=== PATIENT | male | born 1990 | race Caucasian/White ===

== ENCOUNTER 2016-08-23 11:02 | Emergency (ER) | payer OTHER ==
[~2016-08-23] VITALS: Ht 172.7 cm; Wt 83.4 kg
[2016-08-23 11:08] VITALS: TEMP 36.7; Ht 172.7 cm; Wt 83.4 kg
[2016-08-23] MEDS ORDERED: CHOL1000 PO (12:13)
[2016-08-23 12:19] LABS: BASO % 0.3 %; BASO ABS # 0.02 K/uL (0-0.2); COMPLETE YES; EOS % 1.7 %; HEMATOCRIT 42.5 % (42-52); IG% 0.5 %; LYMPH % 26.8 %; MEAN CELL VOLUME 83.2 fL (80-100); MEAN CORPUSCULAR HEMOGLOBIN 29.7 pg (25-34); MEAN CORPUSCULAR HGB CONC 35.8 g/dl (32-36); MONO % 5.8 %; NEUT % 64.9 %; PLATELET COUNT 231 K/uL (130-400); RED BLOOD COUNT 5.11 M/uL (4.7-6.1); WHITE BLOOD COUNT 7.45 K/uL (4.8-10.8)
[2016-08-23 12:34] LABS: PROTHROMBIN TIME (PATIENT) 10.8 SECONDS (9.0-12.0)
[2016-08-23 12:34] LABS: BENZODIAZEPINE, URINE NEG (NEG); COCAINE,URINE NEG (NEG); PHENCYCLIDINE, URINE NEG (NEG)
[2016-08-23 12:41] LABS: CALCIUM 8.9 mg/dl (8.5-10.1); CREATININE 0.81 mg/dl (0.60-1.40); POTASSIUM 3.8 mmol/L (3.5-5.1)
--- NOTE | 2016-08-23 15:02 | DIAGNOSTIC IMAGING REPORT ---
MRI OF THE BRAIN WITHOUT AND WITH IV CONTRAST CLINICAL HISTORY: aphasia eval for stroke mental status change COMPARISON STUDY: No previous studies for comparison. TECHNIQUE: Utilizing a 1.5 Karly magnet and dedicated coil, multiplanar, multiecho imaging of the brain was performed pre and postcontrast administration. IV administration of 8.5 mL of Gadavist contrast was uneventful. FINDINGS: Unremarkable signal characteristics of the diffusion-weighted images. No evidence for an acute ischemic event. Ventricular system is midline. Sella impression region are unremarkable. Structures the internal artery canals are unremarkable. IMPRESSION: Normal study. Electronically signed by: Saeid Martinez M.D. 08/23/2016 3:00 PM Dictated Date/Time: 08/23/2016 2:53 PM
--- NOTE | 2016-08-23 15:05 | DIAGNOSTIC IMAGING REPORT ---
Brain MRA HISTORY: Mental status change eval for stroke TECHNIQUE: 3-D [id number] MRA of the brain was performed without contrast. COMPARISON STUDY: None. FINDINGS: Visualized intracranial internal carotid arteries, distal vertebral arteries, and basilar artery are widely patent. There is no significant stenosis, occlusion, or aneurysm seen within the bilateral ACAs, MCAs, or digital forensics examiner. IMPRESSION: No significant stenosis, occlusion, or aneurysm within the [place]. Electronically signed by: Saeid Martinez M.D. 08/23/2016 3:03 PM Dictated Date/Time: 08/23/2016 3:00 PM
--- NOTE | 2016-08-23 15:11 | DIAGNOSTIC IMAGING REPORT ---
MR ANGIOGRAM OF THE NECK COMBO CLINICAL HISTORY: Aphasia. COMPARISON STUDY: No priors.. TECHNIQUE: Axial 2-D [id number] MR angiography of the neck is performed. Subsequently, following the IV administration of 8 cc of Gadavist coronal MR angiogram of the neck was performed to corroborate the findings. 3-D reformats are created and assessed. All measurements were calculated based on NASCET criteria. FINDINGS: Visualized portions of the thoracic aorta are normal in caliber. The aortic arch demonstrates 4-vessel variant anatomy. The left vertebral artery arises from the arch. The subclavian arteries are widely patent bilaterally. The right common carotid artery is widely patent, as are the right internal and external carotid arteries. The left common carotid artery is widely patent, as are the left internal and external carotid arteries. The vertebral arteries are widely patent noting right-sided dominance. The visualized intracranial vessels are normal as imaged. IMPRESSION: Unremarkable MR angiogram of the neck. Electronically signed by: Brenton Decker M.D. 08/23/2016 3:08 PM Dictated Date/Time: 08/23/2016 3:06 PM
[2016-08-23 15:56] VITALS: BP 128/101; PULSE 92; O2SAT 94
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
[2017-01-25] MEDS ORDERED: IBUP-1050 PO (08:59)
[2017-01-25] MEDS ORDERED: IMD/2 PO (09:00)
[2017-01-31] MEDS ORDERED: CLC100 PO (14:59)
[2017-01-31] MEDS ORDERED: ACET-1047 PO (14:59)
[2017-01-31] MEDS ORDERED: PRLSR20 PO (14:59)
[2017-01-31] MEDS ORDERED: HYDR-3419 PO (14:59)
[2017-01-31] MEDS ORDERED: IBUP-1050 PO (14:59)
== END 2016-08-23 15:56 | disposition home or self-care (01) ==
LOC: C.EDB 11:04 → C.EDC 15:56
DX: R47.9 Unspecified speech disturbances (principal); R51 Headache; F41.9 Anxiety disorder, unspecified; I10 Essential (primary) hypertension; F17.200 Nicotine dependence, unspecified, uncomplicated

== ENCOUNTER 2016-12-19 10:09 | Emergency (ER) | payer OTHER ==
[~2016-12-19] VITALS: Ht 172.7 cm; Wt 82.2 kg
[~2016-12-19 10:09] MED LIST: CHOL1000 PO
[2016-12-19 10:10] VITALS: TEMP 37.3; Ht 172.7 cm; Wt 82.2 kg
[2016-12-19] MEDS ORDERED: SODIUM CHLORIDE 0.9% 1000ML 1,000 ML IV STA (10:45)
[2016-12-19] MEDS ORDERED: CLON1TAB3 PO (10:51)
[2016-12-19] MEDS ORDERED: ESCI10TA17 PO (10:51)
[2016-12-19 10:56] LABS: BASO % 0.2 %; BASO ABS # 0.02 K/uL (0-0.2); COMPLETE YES; EOS % 0.7 %; HEMATOCRIT 49.5 % (42-52); IG% 0.5 %; LYMPH % 12.7 %; LYMPH ABS # 1.09 K/uL (1.2-3.4); MEAN CELL VOLUME 88.2 fL (80-100); MEAN CORPUSCULAR HEMOGLOBIN 31.6 pg (25-34); MEAN CORPUSCULAR HGB CONC 35.8 g/dl (32-36); MEAN PLATELET VOLUME 9.7 fL (7.4-10.4); NEUT % 77.9 %; PLATELET COUNT 218 K/uL (130-400); RED BLOOD COUNT 5.61 M/uL (4.7-6.1); WHITE BLOOD COUNT 8.55 K/uL (4.8-10.8)
--- NOTE | 2016-12-19 11:02 | EMERGENCY ROOM VISIT NOTE ---
History First contact with patient: 10:16 Chief Complaint: CHEST PAIN Stated Complaint: LEFT CHEST PAIN/DISCOMFORT Nursing Triage Summary: Relates left sided chest pain and congestion. PMH: pneumonia History of Present Illness The patient is a 26 year old male who presents to the Emergency Room with complaints of chest pain. The patient has had left-sided chest pain since last night around 7 PM. Patient has had constant chest pain. He states that he had several episodes over the last week that lasted only a short time and resolved. Because this has persisted, he presents to the emergency department. He reports pain with deep inspiration. He reports shortness of breath with exertion. He rates his discomfort an 8/10. The patient states that the pain is worse with movement and palpation. He denies any fevers, chills, earache, sore throat, cough. He denies any leg pain or leg swelling. He denies any personal history of DVT or PE. He states that his grandparents had blood clots. The patient initially denied any occupational exposures or chemical exposures. 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 He states he does not wear a respirator. He has been exposed to Asbestos and possibly black mold. Initially, he denied any drug use. When I asked more detailed information, he does admit to having a history of IV drug use. He states that he never shared any needles. Review of Systems A 10 system review of systems was completed with positives and pertinent negatives listed in the HPI. Past Medical/Surgical History Medical Problems: (1) Anxiety (2) High blood pressure Social History Smoking Status: Current Every Day Smoker Alcohol Use: occasionally Marital Status: in relationship Current/Historical Medications Scheduled Albuterol Hfa (Ventolin Hfa), 2 PUFFS PO QID Cholecalciferol (Vitamin D3), 1 TAB PO DAILY Escitalopram (Lexapro), 10 MG PO DAILY Levofloxacin (Levaquin), 750 MG PO DAILY Scheduled PRN Clonazepam (Klonopin), 1 MG PO DAILY PRN for Anxiety Physical Exam Vital Signs Date Time Temp Pulse Resp B/P (MAP) Pulse Ox O2 Delivery O2 Flow Rate FiO2 12/19/16 14:56 82 16 130/86 94 Room Air 12/19/16 12:52 93 20 127/87 99 Nebulizer 6.0 12/19/16 11:33 96 Nasal Cannula 2.0 12/19/16 11:25 88 16 127/87 88 Room Air 12/19/16 10:56 91 12/19/16 10:43 Room Air 12/19/16 10:10 37.3 100 18 147/86 95 Room Air Physical Exam VITALS: Vitals are noted on the nurse's note and reviewed by myself. Vital signs stable. The patient is afebrile. His heart rate is 100 bpm. His oxygen saturation is 95% on room air. GENERAL: This is a 26-year-old male, in no acute distress, nondiaphoretic, well- developed well-nourished. SKIN: The skin was without rashes, erythema, edema, or bruising. There is no tenting of the skin. Capillary reflex less than 2 seconds. HEAD: Normocephalic atraumatic. EARS: External ears are normal in appearance. EYES: Pupils equal round and reactive to light and accommodation. Conjunctivae without injection, sclerae without icterus. Extraocular movements intact. NOSE: Patent, turbinates without inflammation or discharge. MOUTH: Mucous membranes moist. Tonsils are not enlarged. Pharynx without erythema or exudate. Uvula midline. Airway patent. Tongue does not deviate. NECK: Supple without nuchal rigidity. No lymphadenopathy. No thyromegaly. Cervical spine is nontender. No JVD. HEART: Regular rate and rhythm without murmurs gallops or rubs. LUNGS: Clear to auscultation bilaterally without wheezes, rales or rhonchi. No retractions or accessory muscle use. There is tenderness to palpation of the left anterior and lateral chest wall. ABDOMEN: Positive bowel sounds x 4. Soft, nontender, without masses or organomegaly. Triana sign negative. MUSCULOSKELETAL: No muscle atrophy, erythema, or edema noted. Full range of motion without joint tenderness in all extremities. No tenderness to palpation. Normal gait. Strength 5/5 throughout. NEURO: Patient was alert and oriented to person place and time. No focal neurological deficits. Medical Decision & Procedures ER Provider Diagnostic Interpretation: [~ rep ct add3]] CHEST ONE VIEW PORTABLE CLINICAL HISTORY: chest pain, dyspnea dyspnea COMPARISON STUDY: No previous studies for comparison. FINDINGS: Diffuse interstitial prominence throughout both hemithoraces. No evidence for cardiac enlargement. No consolidative infiltrates. Diaphragms smooth. IMPRESSION: Diffuse bilateral interstitial change throughout both hemithoraces. This most likely is inflammatory. No consolidative infiltrates. (CHEST FOR PE) ANGIO WITH CT DOSE: 375.55 mGy.cm HISTORY: Chest pain dyspnea TECHNIQUE: Multiaxial CT images of the chest were performed following the intravenous administration of contrast to evaluate the pulmonary arteries. Maximal intensity projection images were also obtained. A dose lowering technique was utilized adhering to the principles of ALARA. COMPARISON STUDY: None. FINDINGS: The thoracic aorta is normal in course and caliber. Pulmonary vasculature enhances uniformly. There are no significant filling defects. There are diffuse interstitial changes throughout both hemithoraces. An underlying reticular nodular component appears to be present. There are no consolidative changes. There is moderate peribronchial thickening. There are findings of mediastinal as well as hilar adenopathy. Mediastinal nodes measure to 1.5 cm. Hilar nodes measure to 2.0 cm. There is moderate subcarinal adenopathy. Limited evaluation of the upper abdomen shows moderate splenomegaly with a maximum linear dimension of 12.5 cm. IMPRESSION: 1. Study is negative for pulmonary embolus. 2. Nonspecific interstitial infiltrative change throughout both hemithoraces. 3. Underlying reticular nodular component also nonspecific. 4. Moderate peribronchial thickening with moderate hilar and mediastinal adenopathy. 5. Differential considerations must include a nonspecific atypical pneumonitis, hypersensitivity pneumonitis, versus chronic fibrotic and/or interstitial change. 6. Follow-up to resolution is required. 7. Moderate splenomegaly. Laboratory Results 12/19/16 10:22 Red Blood Count 5.61, Mean Corpuscular Volume 88.2, Mean Corpuscular Hemoglobin 31.6, Mean Corpuscular Hemoglobin Concent 35.8, Mean Platelet Volume 9.7, Neutrophils (%) (Auto) 77.9, Lymphocytes (%) (Auto) 12.7, Monocytes (%) (Auto) 8.0, Eosinophils (%) (Auto) 0.7, Basophils (%) (Auto) 0.2, Neutrophils # (Auto) 6.66, Lymphocytes # (Auto) 1.09, Monocytes # (Auto) 0.68, Eosinophils # (Auto) 0.06, Basophils # (Auto) 0.02 12/19/16 10:22 Test 12/19/16 10:22 12/19/16 10:50 White Blood Count 8.55 K/uL (4.8-10.8) Red Blood Count 5.61 M/uL (4.7-6.1) Hemoglobin 17.7 g/dL (14.0-18.0) Hematocrit 49.5 % (42-52) Mean Corpuscular Volume 88.2 fL (80-100) Mean Corpuscular Hemoglobin 31.6 pg (25-34) Mean Corpuscular Hemoglobin Concent 35.8 g/dl (32-36) Platelet Count 218 K/uL (130-400) Mean Platelet Volume 9.7 fL (7.4-10.4) Neutrophils (%) (Auto) 77.9 % Lymphocytes (%) (Auto) 12.7 % Monocytes (%) (Auto) 8.0 % Eosinophils (%) (Auto) 0.7 % Basophils (%) (Auto) 0.2 % Neutrophils # (Auto) 6.66 K/uL (1.4-6.5) Lymphocytes # (Auto) 1.09 K/uL (1.2-3.4) Monocytes # (Auto) 0.68 K/uL (0.11-0.59) Eosinophils # (Auto) 0.06 K/uL (0-0.5) Basophils # (Auto) 0.02 K/uL (0-0.2) RDW Standard Deviation 41.0 fL (36.4-46.3) RDW Coefficient of Variation 12.7 % (11.5-14.5) Immature Granulocyte % (Auto) 0.5 % Immature Granulocyte # (Auto) 0.04 K/uL (0.00-0.02) Erythrocyte Sedimentation Rate 15 mm/hr (0-14) Prothrombin Time 10.7 SECONDS (9.0-12.0) Prothromb Time International Ratio 1.0 (0.9-1.1) Activated Partial Thromboplast Time 28.3 SECONDS (21.0-31.0) Partial Thromboplastin Ratio 1.1 Anion Gap 3.0 mmol/L (3-11) Est Creatinine Clear Calc Drug Dose 117.3 ml/min Estimated GFR () 121.1 Estimated GFR (Non- 104.5 BUN/Creatinine Ratio 11.9 (10-20) Calcium Level 9.2 mg/dl (8.5-10.1) Total Bilirubin 0.7 mg/dl (0.2-1) Aspartate Amino Transf (AST/SGOT) 25 U/L (15-37) Alanine Aminotransferase (ALT/SGPT) 41 U/L (12-78) Alkaline Phosphatase 117 U/L (45-117) C-Reactive Protein 1.85 mg/dl (0-0.29) Total Protein 8.4 gm/dl (6.4-8.2) Albumin 3.9 gm/dl (3.4-5.0) Globulin 4.5 gm/dl (2.5-4.0) Albumin/Globulin Ratio 0.9 (0.9-2) Lipase 70 U/L (73-393) Bedside D-Dimer 296 ng/mlFEU (0-450) Bedside Troponin I < 0.030 ng/ml (0-0.045) Medications Administered Medications (Trade) Dose Ordered Sig/Leslee Route Start Time Stop Time Status Last Admin Dose Admin Sodium Chloride 1,000 ml @ 999 mls/hr Q1H1M STAT IV 12/19/16 10:45 12/19/16 11:45 DC 12/19/16 10:45 999 MLS/HR Levofloxacin (Levaquin / D5W) 750 mg NOW STAT IV 12/19/16 11:58 12/19/16 11:59 DC 12/19/16 13:15 750 MG Ceftriaxone Sodium (Rocephin Inj) 1 gm NOW STAT IV 12/19/16 11:58 12/19/16 11:59 DC 12/19/16 12:48 1 GM Albuterol/ Ipratropium (Duoneb) 3 ml NOW STAT INH 12/19/16 12:10 12/19/16 12:11 DC 12/19/16 12:48 3 ML Trimethoprim/ Sulfamethoxazole (Septra Ds 800/ 160MG Tab) 1 tab NOW STAT PO 12/19/16 15:08 12/19/16 15:09 DC 12/19/16 15:08 1 TAB Procedure The patient was monitored on a classroom monitor. He maintained a normal sinus rhythm without ectopy. The patient did have an episode of hypoxia while on room air. His oxygen saturation dropped to 88%. He was placed on 2 L of oxygen via nasal cannula. His oxygen saturation improved to 96-98%. ECG Indication: chest pain Rate (beats per minute): 96 Rhythm: normal sinus Findings: no acute ischemic change Comparison ECG Date: no prior available ED Course The patient was seen and examined. Previous visits were reviewed. The patient does not have a fever or leukocytosis. He does not have any significant electrolyte abnormalities. Sedimentation rate is slightly elevated at 15. C- reactive protein is not elevated. Troponin was not elevated. D-dimer is not elevated. INR is 1.0. Chest x-ray was obtained as above and reveals diffuse interstitial prominence Because of this and the patient's hypoxia, chest pain and dyspnea, CTA of the chest was obtained. It is as above. The patient has lymphadenopathy. He has diffuse interstitial prominence. He has splenomegaly. The patient was given a nebulizer and 750 mg IV Levaquin. The patient presents the emergency department with dyspnea, chest pain and hypoxia. He has abnormal findings on imaging. He does have diffuse interstitial prominence. The patient's oxygen saturation dropped to 88% on room air while in the emergency department. The patient may have a pneumonitis. The patient was advised that admission to the hospital would be warranted for further evaluation and management. The patient stated he could not stay in the hospital. The patient stated he had to find childcare. He stated there were other things he had to take care of at home. I counseled the patient stating that he could develop worsening respiratory distress. He could develop respiratory arrest. He could . He acknowledges understanding. I discussed the case with Dr. Lamb who also evaluated the patient. He was not able to convince the patient to agree to stay in the hospital either. He did speak with pulmonology who recommended additional laboratory studies which were ordered. I again evaluated the patient. Case management spoke with him. He still does not want to stay in the hospital. He acknowledges that this could result in if his breathing worsens. He signed out AGAINST MEDICAL ADVICE. An appointment was made for him with pulmonology tomorrow at 1 PM. Initially, the patient stated that he does not use drugs but when I questioned further he does admit to a history of IV drug abuse. He states that he never shared needles. However, I did recommend obtaining an HIV test. I gathered the HIV test consents but the patient refuses. He states he does not want to be tested for HIV and states he would rather just follow-up as an outpatient and he wants to go home. At this time, the patient was signed out AGAINST MEDICAL ADVICE. He was welcomed to return immediately if he changes his mind. He was given one Bactrim prior to arrival for the potential of PCP pneumonia until he follows up with pulmonology. He was also given a prescription for Levaquin. He was given a prescription for albuterol. Medical Decision DIFFERENTIAL DIAGNOSIS: Aortic dissection, myocarditis, pericarditis, cervical disc disease, costochondritis, herpes zoster, rib fracture, pleuritis, pneumonia , pulmonary embolus, tension pneumothorax, anxiety disorder, somatoform disorder , choledocholithiasis, status, esophagitis, esophageal spasm, esophageal reflux , esophageal rupture, pancreatitis, peptic ulcer disease, cardiac ischemia, ST elevation NE, acute coronary syndrome, arrhythmia, coronary artery vasospasm. vavular heart disease, coronary artery disease, among others. Medication Reconcilliation Current Medication List: was personally reviewed by me Blood Pressure Screening Patient's blood pressure: Elevated blood pressure Blood pressure disposition: Elevated BP felt to be situational Impression Primary Impression: Lower respiratory infection (e.g., bronchitis, pneumonia, pneumonitis, pulmonitis) Departure Information Dispostion Against Medical Advice Condition GOOD Prescriptions Albuterol Hfa (VENTOLIN HFA) 200 Puffs/97098 Mcg Aers 2 PUFFS PO QID, #1 INHALER Prov: Mary Farr PA-C 12/19/16 Levofloxacin (Levaquin) 750 Mg Tab 750 MG PO DAILY for 7 Days, #7 TAB Prov: Mary Farr PA-C 12/19/16 Referrals Doron Bedolla PA-C (PCP) Bella Hadley PA-C Patient Instructions [facility] Additional Instructions Levaquin as prescribed, until finished Use the albuterol inhaler as needed for trouble breathing Prednisone as prescribed, until finished Follow-up with pulmonology tomorrow as scheduled Return with any worsening symptoms
[2016-12-19 11:06] LABS: BUN/CREATININE RATIO 11.9 (10-20); CALCIUM 9.2 mg/dl (8.5-10.1); CREATININE 0.98 mg/dl (0.60-1.40)
[2016-12-19 11:07] LABS: PARTIAL THROMBOPLASTIN RATIO 1.1; PROTHROMBIN TIME (PATIENT) 10.7 SECONDS (9.0-12.0)
[2016-12-19 11:08] LABS: ALB/GLOB RATIO 0.9 (0.9-2)
[2016-12-19 11:09] LABS: POINT OF CARE TROPONIN I < 0.030 ng/ml (0-0.045)
--- NOTE | 2016-12-19 11:23 | DIAGNOSTIC IMAGING REPORT ---
CHEST ONE VIEW PORTABLE CLINICAL HISTORY: chest pain, dyspnea dyspnea COMPARISON STUDY: No previous studies for comparison. FINDINGS: Diffuse interstitial prominence throughout both hemithoraces. No evidence for cardiac enlargement. No consolidative infiltrates. Diaphragms smooth. IMPRESSION: Diffuse bilateral interstitial change throughout both hemithoraces. This most likely is inflammatory. No consolidative infiltrates. The above report was generated using voice recognition software. It may contain grammatical, syntax or spelling errors. Electronically signed by: Saeid Martinez M.D. 12/19/2016 11:21 AM Dictated Date/Time: 12/19/2016 11:21 AM
[2016-12-19 11:33] VITALS: O2SAT 96
[2016-12-19] MEDS ORDERED: CEFTRIAXONE SOD INJ 1 GM ADDVIAL IV STA (11:58)
[2016-12-19] MEDS ORDERED: LEVAQUIN 750MG / 150ML D5W IV STA (11:58)
[2016-12-19] MEDS ORDERED: ALBUT/IPRATROP 3MG/0.5MG NEB 3 ML VIAL INH STA (12:10)
[2016-12-19] MEDS ORDERED: OPTIRAY 320 IV PRN (12:15)
--- NOTE | 2016-12-19 12:52 | DIAGNOSTIC IMAGING REPORT ---
(CHEST FOR PE) ANGIO WITH CT DOSE: 375.55 mGy.cm HISTORY: Chest pain dyspnea TECHNIQUE: Multiaxial CT images of the chest were performed following the intravenous administration of contrast to evaluate the pulmonary arteries. Maximal intensity projection images were also obtained. A dose lowering technique was utilized adhering to the principles of ALARA. COMPARISON STUDY: None. FINDINGS: The thoracic aorta is normal in course and caliber. Pulmonary vasculature enhances uniformly. There are no significant filling defects. There are diffuse interstitial changes throughout both hemithoraces. An underlying reticular nodular component appears to be present. There are no consolidative changes. There is moderate peribronchial thickening. There are findings of mediastinal as well as hilar adenopathy. Mediastinal nodes measure to 1.5 cm. Hilar nodes measure to 2.0 cm. There is moderate subcarinal adenopathy. Limited evaluation of the upper abdomen shows moderate splenomegaly with a maximum linear dimension of 12.5 cm. IMPRESSION: 1. Study is negative for pulmonary embolus. 2. Nonspecific interstitial infiltrative change throughout both hemithoraces. 3. Underlying reticular nodular component also nonspecific. 4. Moderate peribronchial thickening with moderate hilar and mediastinal adenopathy. 5. Differential considerations must include a nonspecific atypical pneumonitis, hypersensitivity pneumonitis, versus chronic fibrotic and/or interstitial change. 6. Follow-up to resolution is required. 7. Moderate splenomegaly. The above report was generated using voice recognition software. It may contain grammatical, syntax or spelling errors. Electronically signed by: Saeid Martinez M.D. 12/19/2016 12:50 PM Dictated Date/Time: 12/19/2016 12:44 PM
[2016-12-19] MEDS ORDERED: LEVO1TAB35 PO (14:46)
[2016-12-19] MEDS ORDERED: VNTHFA/IN PO (14:46)
[2016-12-19] MEDS ORDERED: PRED20TA PO (14:46)
[2016-12-19 14:56] VITALS: BP 130/86; PULSE 82; O2SAT 94
[2016-12-19] MEDS ORDERED: SULFAMETHOXAZOLE/TRIMETHOPRIM DS 800/160MG TAB PO STA (15:08)
--- NOTE | 2016-12-19 15:55 | EMERGENCY ROOM VISIT NOTE ---
ED Visit Note First contact with patient: 10:16 Patient is a 26-year-old male who presents to the ER for shortness of breath. He was evaluated by my PA. Chest x-ray shows diffuse interstitial process. He was slightly hypoxic. CT shows diffuse interstitial thickening. We recommended admission but patient declined. I discussed the case with Dr. Dowd agreed with admission and further workup including set, CRP and DESTINI since the patient was unwilling to come in. Girlfriend was at bedside and both the patient and girlfriend and understood the risk explained by myself and my PA. Patient will follow up with pulmonology as we are able to set up an appointment tomorrow in the office. Eventually he did admit to previous IV drug use and consequently we recommended HIV testing which she declined. We did give him a dose of Bactrim in case this was PCP although I favor this is unlikely as he has no fevers and his ANC is unremarkable. Recommended following up with pulmonology tomorrow. The patient requested to leave. I considered this to be leaving against medical advice. I personally discussed the following with them. They currently had a medical condition of: Hypoxia and I am concerned that they have infectious/inflammatory changes within the lungs or other serious pathology despite feeling okay. My proposed course of evaluation and treatment and that of any consultants is: Admission Benefits would include: possible diagnosis or excluding of serious infections or an alternative serious condition such as sarcoidosis/TB/PCP, which if identified early would lead to appropriate intervention in a timely manner lessing the burden of disability and . Risks of leaving before this had been completed include: misdiagnosis, worsening illness leading up to and including prolonged or permanent disability or . Specific risks pertinent, but not all inclusive, of their current medical condition include but are not limited to: Heart failure, , disability. Despite this they stated they wanted to leave due to having to take care of his child at home and refused further evaluation, treatment, or admission at this time. They appear clinically sober, to be mentating appropriately, free from distracting injury, have controlled pain, appear to have intact insight, judgment, and reason and in my opinion have the capacity to make this decision. Specifically, they were able to verbally state back in a coherent manner their current medical condition /current diagnosis, the proposes course of treatment, and the risks, benefits, and alternatives of treatment versus leaving against medical advice. They understand that they may return to seek medical attention here at whatever time they want. I highly advised them to return to the Emergency Department immediately if they experienced any: Chest pain, shortness of breath, weakness; reconsidered treatment a/o admission, or had any other concerns. This would be without any repercussions. I recommended set up follow-up with pulmonology tomorrow and recommended returning to the ER as soon as possible.
[2017-01-25] MEDS ORDERED: IBUP-1050 PO (08:59)
[2017-01-25] MEDS ORDERED: IMD/2 PO (09:00)
[2017-01-31] MEDS ORDERED: HYDR-3419 PO (14:59)
[2017-01-31] MEDS ORDERED: CLC100 PO (14:59)
[2017-01-31] MEDS ORDERED: PRLSR20 PO (14:59)
[2017-01-31] MEDS ORDERED: ACET-1047 PO (14:59)
[2017-01-31] MEDS ORDERED: IBUP-1050 PO (14:59)
== END 2016-12-19 15:28 | disposition left against medical advice (07) ==
LOC: C.EDB 10:12 → C.EDA 15:28
DX: J22 Unspecified acute lower respiratory infection (principal); F41.9 Anxiety disorder, unspecified; F17.210 Nicotine dependence, cigarettes, uncomplicated; Z79.899 Other long term (current) drug therapy; F19.10 Other psychoactive substance abuse, uncomplicated

== ENCOUNTER → 2016-12-20 | Outpatient (CLI) | payer OTHER ==
[~2016-12-20] MED LIST changes: +ACET-1047 PO; +CLC100 PO; +CLON1TAB3 PO; +ESCI10TA17 PO; +HYDR-3419 PO; +IBUP-1050 PO; +IMD/2 PO; +LEVO1TAB35 PO; +PRLSR20 PO; +VNTHFA/IN PO
[2016-12-20 16:57] LABS: PARTIAL THROMBOPLASTIN RATIO 1.1; PROTHROMBIN TIME (PATIENT) 10.9 SECONDS (9.0-12.0)
[2016-12-24 16:56] LABS: QUANTIF TB AG-NIL <0.00 IU/ML; QUANTIFERON NIL 0.06 IU/ML
[2016-12-25 09:36] LABS: CMV DNA PCR QUANT SOURCE Whole Blood; CMV DNA QN REAL TIME PCR <200 IU/mL (<200); HISTOPL GALACTOMANNAN AG URINE <0.5 ng/mL; IGG SERUM 991 mg/dL (694-1618)
== END | disposition home or self-care (01) ==
LOC: C.LAB1850 15:19
PROVIDERS: ATTEND Dermatology
DX: R91.8 Other nonspecific abnormal finding of lung field (principal)

== ENCOUNTER 2016-12-24 09:18 | Day surgery (SDC) | payer OTHER ==
[2016-12-24] VITALS (11 sets, daily range): BP systolic 109–134; BP diastolic 64–98; PULSE 81–108; TEMP 36.9–37.1; O2SAT 89–99; Ht 172.7 cm; Wt 81.7 kg
[~2016-12-24] VITALS: Ht 172.7 cm; Wt 81.7 kg
[~2016-12-24 09:18] MED LIST changes: -ACET-1047 PO; -CLC100 PO; -HYDR-3419 PO; -IBUP-1050 PO; -IMD/2 PO; -PRLSR20 PO
[2016-12-24] MEDS ORDERED: MIDAZOLAM HCL 5 MG/ML 2ML VIAL IV ONE (09:19)
[2016-12-24] MEDS ORDERED: FENTANYL CITRATE 100 MCG 2 ML CARP IV ONE (09:19)
--- NOTE | 2016-12-24 10:42 | History and Physical ---
History & Physical Date Dec 24, 2016. Chief Complaint Chief complaint: 26-year-old gentleman with hypoxia and I atypical CT scan History of Present Illness Chief complaint: 26-year-old gentleman with hypoxia and I atypical CT scan History of Present Illness 26-year-old male presents the office for new patient evaluation status post emergency room admission with hypoxia and abnormal CT of the chest. Prior records reviewed. PMHx includes: Anxiety/depression, hypertension, and GERD. Patient denies any history of childhood asthma or allergies. He reports in 2008 he was treated as an outpatient for pneumonia. 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 He states he worked there for approximately 1 month. He denies any personal history of frequent prolonged respiratory infections. Patient carries a long-standing history of moderate to heavy tobacco use. He states he smoked between 1 and 2 packs per day since the age of 12. Over last 2 months he has decreased his cigarette consumption to 1/4 to 1/2 pack per day. Additionally he reports history of very heavy alcohol use. He reports drinking 378-757 mL of hard liquor 5-days / week. He denies h/o aspiration or frequent emesis - he states that he may pass out in the evenings at time. He states he has been drying to decrease this volume and has reduced this volume to 3x/week. He denies any h/o marijuana consumption. He does report h/o former IVDU last use of Suboxone 10/2015. Over the past 2 years he developed symptoms of mild cough worse in the mornings. He states he called as a Smoker's cough. And this was provoked with cigarette consumption. Cough was dry in nature without any hemoptysis. He states it felt like a tickle in his throat. Over the last 3-6 months he developed concurrent symptoms of dyspnea and increased frequency of cough. Cough may not be productive and he will expectorated approximately 60 % of the time describing sputum is yellow/white in nature. No blood. Cough is provoked with smoking, activity, and walking into his apartment which she states has a strong mildew/mold odor. Over the past 3 months he reports approximately a 30 pound weight gain. He states that he attributed this to moving in with his girlfriend. Formally he walked as his primary transportation however his girlfriend has a car and so this activity level has decreased. He reports increased dyspnea with activity such as climbing a single flight of steps particularly with carrying groceries. Again, dyspnea is associated with cough. He states that cough is not waking sleep at night. He denies any symptoms of acid reflux or emesis. He denies any dysphasia. Patient is a lifelong [place] resident. [place]. 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 He currently lives in apartment setting. He lives on the 3rd floor with his girlfriend and son. There he is electric. They do not have any pets. He does as above described a strong mold/mildew smell upon entering the apartment building but denies any mold or mildew in their personal apartment/quarters. Neither of his household members have a difficulty with cough or dyspnea. 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 He states that he does not use respiratory protection during this activities. 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 He denies any prior service in the . The patient denies any family history of lung disease. he denies any personal history of cardiac disease. He states that his maternal grandfather did have heart attack but otherwise he does not believe and he has his family members have significant cardiac disease. Patient presents to our office following emergency room presentation 12/19/2016 which she described a several month history of progressive left-sided chest pain. He states that chest pain was aching in nature but and would take his breath away. Pain would wax and wane lasting several hours at a time. Pain was provoked with certain positions and deep palpation in between the mid and anterior axillary line between the ribs. He states that pain would radiate from the mid sternum inframammary to the anterior axillary line. If not radiate to the back. He denied any symptoms of heart palpitations or concurrent headache. He states that his pain progressed and is provoked presentation to the emergency department. In the emergency department he is noted to be mildly hypoxic. CBC was without leukocytosis or sick eosinophilia however did note elevation in neutrophils. ESR and CRP were mildly elevated. CT angiogram 12/19/2016 was quite impressive and images were reviewed by myself and to my attending physicians. This describes diffuse interstitial changes throughout both hemithoraces with underlying reticular nodular component and moderate peribronchial thickening. There were no significant filling defects. There was significant mediastinal or hilar adenopathy. Mediastinal nodes measure 1.5 centimeters. Hilar nodes measured 2 centimeters. There is moderate subcarinal adenopathy. There was moderate splenomegaly as well. Admission for further treatment and workup was recommended however the patient refused. He did agree to coming to our office today. For attending physician was called and an Juan level was required and this is pending. HE was discharged with an albuterol inhaler which he states is palliative for cough as well as received 1x dose bactrim in-house and discharged on Levaquin. On exam/interview today he is accompanied by his girlfriend. He reports that his chest pain has resolved. He states that he is able to take off work for an his simpler is sympathetic to his current illness. He does seem to be out of bed about reducing his alcohol consumption and has not drank and 3 full days. Past Medical/Surgical History Medical Problems: (1) Anxiety (2) High blood pressure Additional History Hepatic Disease: No Endocrine Disorder: No Kidney Disease: No Hypertension: Yes Heart Disease: No Bleeding Tendencies: No Infectious Diseases: No Allergies Coded Allergies: Penicillins (Unverified Allergy, Unknown, UNKNOWN, 12/24/16) Home Medications Scheduled Albuterol Hfa (Ventolin Hfa), 2 PUFFS PO QID Cholecalciferol (Vitamin D3), 1 TAB PO DAILY Escitalopram (Lexapro), 10 MG PO DAILY Levofloxacin (Levaquin), 750 MG PO DAILY Scheduled PRN Clonazepam (Klonopin), 1 MG PO DAILY PRN for Anxiety Physical Examination Skin: warm/dry, no rash Eyes: normal inspection, EOMI, sclerae normal ENT: normal ENT inspection, pharynx normal Head: normocephalic, atraumatic Neck: supple, no adenopathy, trachea midline Respiratory/Chest: lungs clear, normal breath sounds, no respiratory distress Cardiovascular: regular rate, rhythm, no edema, no murmur Abdomen / GI: normal bowel sounds, non tender Back: normal inspection Extremities: normal inspection, normal range of motion Neurologic/Psych: no motor/sensory deficits, alert, normal reflexes, oriented x 3 Diagnosis Hypoxia with abnormal CT scan multiple cystic lung disease Plan of Treatment Bronchoscopy, conscious sedation bronchial alveolar lavage for evaluation of infectious etiology
--- NOTE | 2016-12-24 10:43 | History & Physical Bridge Note ---
H&P Re-Evaluation Bridge Note: I have examined the patient, reviewed the History & Physical and in the interval since the performance of the History & Physical I have noted the following changes of clinical significance: No changes noted
--- NOTE | 2016-12-24 10:44 | Procedure Note ---
Pre-Mod Sedation Assessment General Date of Moderate Sedation: Dec 24, 2016. Vital Signs: Vital Signs Past 12 Hours Date Time Temp Pulse Resp B/P (MAP) Pulse Ox O2 Delivery O2 Flow Rate FiO2 12/24/16 09:51 37.1 108 20 134/81 (98) 89 Room Air Review Cardiovascular: regular rate, rhythm, no edema, no gallop, no JVD, no murmur, normal peripheral pulses Abdomen: normal bowel sounds, non tender, soft, no organomegaly, no pulsatile mass, normal rectal exam, occult blood negative Lungs: chest non-tender, lungs clear, normal breath sounds, no respiratory distress Airway Class: I Pre-Sedation Airway Assessment Oral Cavity: WNL Able to Visualize Vocal Cords: Yes Short Thick Neck: No Hx of Sleep Apnea: No Smoking Status: Current Every Day Smoker Mallampati Classification: Class II ASA Classification: Class II Procedure Planning Contraindications-for Mod Sed: None Yes Notes The planned sedation has been discussed with the patient and consent obtained. I have identified the patient, determined the appropriateness of sedation and have assessed the patient immediately prior to the procedure. All medicine(s) and interventions are by my order.
[2016-12-24] MEDS ORDERED: MIDAZOLAM HCL 5 MG/ML 1 ML VIAL IV ONE (12:30)
[2016-12-24] MEDS ORDERED: FENTANYL CITRATE INJ 50 MCG/1 ML 2 ML VIAL IV ONE (12:30)
[2016-12-24] MEDS ORDERED: NURSING VERBAL MED ORDER ONE (12:30)
--- NOTE | 2016-12-24 12:51 | Procedure Note ---
Post-Moderate Sedation Plan General Date of Moderate Sedation Dec 24, 2016. Vital Signs: Vital Signs Past 12 Hours Date Time Temp Pulse Resp B/P (MAP) Pulse Ox O2 Delivery O2 Flow Rate FiO2 12/24/16 12:25 88 18 109/79 94 Nasal Cannula 4.0 12/24/16 12:25 20 119/69 95 Nasal Cannula 4 12/24/16 12:20 103 18 116/84 93 Nasal Cannula 4.0 12/24/16 12:15 97 14 132/98 97 Mask 8.0 12/24/16 12:10 87 15 124/92 99 Mask 8.0 12/24/16 11:53 91 21 128/86 98 Mask 8.0 12/24/16 11:44 37.1 108 20 134/81 89 Room Air 12/24/16 09:51 37.1 108 20 134/81 (98) 89 Room Air Review - Discharge Plan Post Moderate Sedation Plan: On clinical assessment, the patient appears to have tolerated the conscious sedation without complications. Patient is recovering as anticipated. Patient will continue to be monitored by nursing and may be discharged when conscious sedation discharge criteria are met.
--- NOTE | 2016-12-24 12:51 | Bronchoscopy Procedure Note ---
Bronchoscopy Procedure Note Procedure: Bronchoscopy, conscious sedation, BRONCHIAL LAVAGE RIGHT MIDDLE LOBE Consent: Obtained through the patient placed into the chart Pre-procedural diagnosis: DIFFUSE CYSTIC LUNG DISEASE Post-procedural diagnosis: DIFFUSE CYSTIC LUNG DISEASE Start time: 1205 End time: 1217 Total time: 12 minutes Analgesia: 2% liquid lidocaine: Via nebulizer 4% gel lidocaine: Via right naris 2% liquid lidocaine: Via bronchoscopy Sedation: Versed IV: 4mg Fentanyl IV: 100 g Procedure: The Nulu video bronchoscope was used for this procedure and passed down through the right naris Right naris/posterior naris/posterior oropharynx: Anatomically within normal limits Glottis: Anatomically within normal limits Vocal cords: Proper abduction and abduction, anatomically within normal limits Subglottis/trachea/Subha: Anatomically within normal limits Right bronchial tree: Right mainstem bronchus: Anatomically within normal limits Right upper lobe: Anatomically within normal limits Bronchus intermedius: Anatomically within normal limits Right middle lobe: Anatomically within normal limits Right lower lobe: Anatomically within normal limits Findings: No significant findings noted Left bronchial tree: Left mainstem bronchus: Anatomically within normal limits Left upper lobe: Anatomically within normal limits Lingula: Anatomically within normal limits Left lower lobe: Anatomically within normal limits Findings: No significant findings noted Bronchial alveolar lavage: Right middle lobe EBL: None Complications: None Follow-up: In the [facility]
--- NOTE | 2016-12-24 12:55 | Discharge Instructions ---
Discharge Instructions Date of Service Dec 24, 2016. Admission Reason for Admission: Hypoxia, Sob, Abnormal Ct Lung Discharge Discharge Diagnosis / Problem: Diffuse cystic lung disease/abnormal CT scan Discharge Goals Goal(s): Diagnostic testing Activity Recommendations Activity Limitations: resume your previous activity . Instructions / Follow-Up Instructions / Follow-Up Follow-up at the [facility] Current Hospital Diet Patient's current hospital diet: Discharge Diet Recommended Diet: Regular Diet Procedures Procedures Performed: Bronchoscopy, bronchial lavage, conscious sedation Pending Studies Studies pending at discharge: no Medical Emergencies . Who to Call and When: Medical Emergencies: If at any time you feel your situation is an emergency, please call 911 immediately. . Non-Emergent Contact Non-Emergency issues call your: Cold Roll Catcher . . "Provider Documentation" section prepared by Presley James. . VTE Core Measure Inpt VTE Proph given/why not?: Treatment not indicated
[2017-01-17 20:28] LABS: HERPES SIMPLEX CULT SOURCE OTHER-BRONCH WASH; HERPES SIMPLEX VIRUS CULT NOT ISOLATED (NOT ISOLATED)
[2017-01-25] MEDS ORDERED: IBUP-1050 PO (08:59)
[2017-01-25] MEDS ORDERED: IMD/2 PO (09:00)
[2017-01-31] MEDS ORDERED: CLC100 PO (14:59)
[2017-01-31] MEDS ORDERED: ACET-1047 PO (14:59)
[2017-01-31] MEDS ORDERED: HYDR-3419 PO (14:59)
[2017-01-31] MEDS ORDERED: PRLSR20 PO (14:59)
[2017-01-31] MEDS ORDERED: IBUP-1050 PO (14:59)
== END 2016-12-24 14:25 | disposition home or self-care (01) ==
LOC: C.ACU 09:18
PROVIDERS: ATTEND Internal Medicine Critical Care Medicine
DX: J18.9 Pneumonia, unspecified organism (principal); F41.8 Other specified anxiety disorders; R09.02 Hypoxemia; I10 Essential (primary) hypertension; F17.210 Nicotine dependence, cigarettes, uncomplicated; Z79.899 Other long term (current) drug therapy

== ENCOUNTER → 2017-01-17 | Outpatient (CLI) | payer OTHER ==
[~2017-01-17] MED LIST changes: +ACET-1047 PO; +CLC100 PO; +HYDR-3419 PO; +IBUP-1050 PO; +IMD/2 PO; -LEVO1TAB35 PO; +OPTIRAY 320 IV PRN; +PRLSR20 PO
--- NOTE | 2017-01-17 10:38 | DIAGNOSTIC IMAGING REPORT ---
CT SCAN OF THE CHEST WITH IV CONTRAST CLINICAL HISTORY: Cough. Hypoxia. Abnormal CT. COMPARISON STUDY: Chest CT dated 12/19/2016. TECHNIQUE: Following the IV administration of 94 cc of Optiray 320, CT scan of the thorax was performed from the thoracic inlet to the upper abdomen. Images are reviewed in the axial, sagittal, and coronal planes. IV contrast was administered without complication. A dose lowering technique was utilized adhering to the principles of ALARA. CT DOSE: 316.12 mGy.cm FINDINGS: Thyroid: Imaged portions of the thyroid gland are normal in size and attenuation. Thoracic aorta: The thoracic aorta is normal in caliber and demonstrates 4-vessel variant arch anatomy. No dissection is seen. Pulmonary vasculature: The pulmonary trunk is dilated, measuring 3.4 cm in transverse diameter. This suggests pulmonary artery hypertension. There are no filling defects identified in the central pulmonary vessels to indicate pulmonary embolus. Note that this examination was not protocoled for evaluation of the pulmonary arteries. Heart: The heart is normal in size and configuration, and without pericardial effusion. Lungs and pleural spaces: There is no airspace consolidation or pleural effusion. There is nonspecific interstitial thickening with diffuse/miliary nodularity seen throughout both lungs. Tiny nodules measure up to 6 mm. The trachea and central airways are clear. Mild diffuse peribronchial thickening is observed. There is no honeycombing or significant traction bronchiectasis. Scattered foci of cystic change are noted. There is air trapping throughout the upper lobes. Mediastinum: There are mildly enlarged mediastinal lymph nodes. A prevascular node on image #87 measures 9 mm in short axis. Right paratracheal nodes measure up to 11 mm short axis. A subcarinal node measures 11 mm in short axis. Valeri: Mildly enlarged hilar nodes measure up to 11 mm in short axis. Axillae: There is no axillary lymphadenopathy. Upper abdomen: The spleen is mildly enlarged, measuring 13.7 cm in length. There is trace perisplenic fluid. The liver is enlarged and steatotic. Skeletal structures: No lytic or blastic bony lesions are seen. IMPRESSION: 1. There is no lobar consolidation or pleural effusion. 2. There is extensive interstitial parenchymal abnormality with miliary nodularity, diffuse peribronchial thickening, and significant air-trapping in the upper lobes. The appearance is nonspecific with a broad differential. Top considerations include hypersensitivity pneumonitis, RB-ILD, drug induced interstitial lung disease, or less likely sarcoidosis versus granulomatous infection. If not already performed bronchoscopy may provide further information. 3. There are mildly enlarged mediastinal and hilar lymph nodes. This appears modestly improved from 12/19/2016. 4. Findings suggest pulmonary artery hypertension. 5. Splenomegaly. 6. Hepatomegaly and hepatic steatosis. Electronically signed by: Brenton Decker M.D. 01/17/2017 10:37 AM Dictated Date/Time: 01/17/2017 10:17 AM
== END | disposition home or self-care (01) ==
LOC: C.CTS 09:49
PROVIDERS: ATTEND Physician Assistant
DX: R91.8 Other nonspecific abnormal finding of lung field (principal); R09.02 Hypoxemia; R16.2 Hepatomegaly with splenomegaly, not elsewhere classified; K76.0 Fatty (change of) liver, not elsewhere classified

== ENCOUNTER → 2017-02-07 | Outpatient (CLI) | payer OTHER ==
[~2017-02-07] MED LIST changes: -OPTIRAY 320 IV PRN
--- NOTE | 2017-02-07 12:47 | DIAGNOSTIC IMAGING REPORT ---
CHEST 2 VIEWS ROUTINE HISTORY: 26 years-old Male J84.9 Interstitial lung [id number] COMPARISON: Chest radiograph 01/31/2017, chest CT 01/17/2017. TECHNIQUE: Frontal and lateral views of the chest. FINDINGS: Cardiomediastinal and hilar silhouettes are within normal limits. There is no pneumothorax or pleural effusion. Persistent reticulonodular opacities are again seen throughout the bilateral lungs in a multilobar distribution. No new focal airspace consolidations are identified. No overt pulmonary edema. The bones are grossly intact. IMPRESSION: Unchanged appearance of the mixed reticular nodular opacities of the lungs compatible with interstitial lung disease. The above report was generated using voice recognition software. It may contain grammatical, syntax or spelling errors. Electronically signed by: Rocky Carroll M.D. 02/07/2017 12:46 PM Dictated Date/Time: 02/07/2017 12:43 PM
== END | disposition home or self-care (01) ==
LOC: C.RAD 12:20
PROVIDERS: ATTEND Surgery
DX: J84.9 Interstitial pulmonary disease, unspecified (principal)

== ENCOUNTER → 2017-02-27 | Outpatient (CLI) | payer OTHER ==
--- NOTE | 2017-02-27 13:51 | ECHOCARDIOGRAM REPORT ---
*NOTICE TO RECEIVING REPUBLICAN AGENCY This information is strictly Confidential and protected under [place] law. [place] law prohibits you from making any further disclosure of this information unless further disclosure is expressly permitted by the written consent of the person to whom it pertains or is authorized by law. A general authorization for the release of medical or other information is not sufficient for this purpose. Hospital accepts no responsibility if the information is made available to any other person, INCLUDING THE PATIENT. Interpretation Summary * Name: ZELDA GREGORIO Study Date: 02/27/2017 01:03 PM BP: 150/82 mmHg * Patient Location: [facility] HR: 63 * : 1990 (M/d/yyyy) Gender: Male Height: 68 in * Age: 26 yrs Ethnicity: CA Weight: 185 lb * Ordering Physician: Ismael Eaton * Referring Physician: Ismael Eaton * Performed By: Yajaira Garcia RCS * * Reason For Study: ABN CT SCAN / HYPOXIA / INTERSTITIAL LUNG DISEASE * BSA: 2.0 m2 * -- Conclusions -- * Left ventricular systolic function is normal. * No regional wall motion abnormalities noted. * Ejection Fraction = 55-60%. * No significant valvular pathology. Procedure Details * A complete two-dimensional transthoracic echocardiogram was performed (2D, M-mode, Doppler and color flow Doppler). Left Ventricle * The left ventricle is normal in size. * There is normal left ventricular wall thickness. * Left ventricular systolic function is normal. * Ejection Fraction = 55-60%. * No regional wall motion abnormalities noted. Right Ventricle * The right ventricle is normal size. * The right ventricular systolic function is normal as assessed by tricuspid annular plane systolic excursion (TAPSE) (normal >1.5 cm). Atria * The left atrial size is normal. * Right atrial size is normal. * No ASD detected; PFO is not assessed. Mitral Valve * The mitral valve anatomy is normal. * There is no mitral valve stenosis. * There is no mitral regurgitation noted. Tricuspid Valve * The tricuspid valve anatomy is normal. * No significant tricuspid stenosis. * Significant tricuspid regurgitation is absent. Aortic Valve * The aortic valve is normal in structure and function. * No hemodynamically significant valvular aortic stenosis. * No aortic regurgitation is present. Pulmonic Valve * The pulmonary valve is not well seen, but the Doppler examination is normal without significant regurgitation or stenosis. Great Vessels * The aortic root is normal size. * The pulmonary artery is not well visualized, but is probably normal size. Pericardium/Pleural * There is no pericardial effusion. Great Vessels * Normal inferior vena cava size and collapsability with sniff indicates a normal right atrial pressure of 3 mmHg MMode 2D Measurements and Calculations IVSd 1.1 cm IVSs 1.5 cm LVIDd 4.2 cm LVIDs 3.2 cm LVPWd 1.1 cm LVPWs 1.2 cm IVS/LVPW 0.99 FS 24.0 % EDV(Teich) 79.5 ml ESV(Teich) 41.1 ml EF(Teich) 48.2 % EDV(cubed) 75.2 ml ESV(cubed) 33.0 ml EF(cubed) 56.2 % % IVS thick 35.6 % % LVPW thick 6.8 % LV mass(C)d 156.3 grams LV mass(C)dI 79.1 grams/m\S\2 LV mass(C)s 139.7 grams LV mass(C)sI 70.6 grams/m\S\2 SV(Teich) 38.3 ml SI(Teich) 19.4 ml/m\S\2 SV(cubed) 42.2 ml SI(cubed) 21.4 ml/m\S\2 Ao root diam 3.0 cm Ao root area 7.2 cm\S\2 ACS 2.3 cm LA dimension 2.6 cm LA/Ao 0.87 LVOT diam 2.0 cm LVOT area 3.1 cm\S\2 Doppler Measurements and Calculations MV E max jamey 82.5 cm/sec MV A max jamey 43.7 cm/sec MV E/A 1.9 MV P1/2t max jamey 90.6 cm/sec MV P1/2t 98.1 msec MVA(P1/2t) 2.2 cm\S\2 MV dec slope 270.4 cm/sec\S\2 MV dec time 0.20 sec Ao V2 max 104.8 cm/sec Ao max PG 4.4 mmHg Ao max PG (full) 0.77 mmHg BATSHEVA(V,A) 2.9 cm\S\2 BATSHEVA(V,D) 2.9 cm\S\2 LV V1 max PG 3.6 mmHg LV V1 max 95.1 cm/sec PA V2 max 75.9 cm/sec PA max PG 2.3 mmHg
== END | disposition home or self-care (01) ==
LOC: C.CPL 12:50
PROVIDERS: ATTEND Internal Medicine Pulmonary Disease
DX: F41.9 Anxiety disorder, unspecified (principal); J84.9 Interstitial pulmonary disease, unspecified; R91.8 Other nonspecific abnormal finding of lung field; R09.02 Hypoxemia

== ENCOUNTER → 2017-03-07 | Outpatient (CLI) | payer OTHER ==
[~2017-03-07] MED LIST changes: -PRLSR20 PO
== END | disposition home or self-care (01) ==
LOC: C.RC 13:48
PROVIDERS: ATTEND Physician Assistant
DX: J84.115 Respiratory bronchiolitis interstitial lung disease (principal)

== ENCOUNTER → 2017-03-18 | Outpatient (CLI) | payer OTHER ==
--- NOTE | 2017-03-18 10:04 | DIAGNOSTIC IMAGING REPORT ---
CHEST 2 VIEWS ROUTINE HISTORY: 26 years-old Male J84.115 Respiratory bronchiolitis interstitial lung [id number] history of prior right lung biopsy 7 weeks prior. COMPARISON: Chest radiograph 02/07/2017, chest CT 01/17/2017 TECHNIQUE: PA and lateral views of the chest FINDINGS: Mildly improved appearance of diffuse bilateral multilobar distribution of reticular nodular opacities with areas of increased lucency. No pneumothorax, pleural effusion or focal lobar airspace consolidation. Cardiac mediastinal and hilar silhouettes are within normal limits. Bones are grossly intact. Remote mid right clavicular fracture deformity. IMPRESSION: Mildly improved appearance of diffuse bilateral multilobar distribution of reticular nodular opacities The above report was generated using voice recognition software. It may contain grammatical, syntax or spelling errors. Electronically signed by: Rocky Carroll M.D. 03/18/2017 10:03 AM Dictated Date/Time: 03/18/2017 10:00 AM
== END | disposition home or self-care (01) ==
LOC: C.RAD 09:27
PROVIDERS: ATTEND Physician Assistant
DX: J84.115 Respiratory bronchiolitis interstitial lung disease (principal)

== ENCOUNTER → 2017-06-05 | Outpatient (CLI) | payer OTHER ==
--- NOTE | 2017-06-05 10:37 | DIAGNOSTIC IMAGING REPORT ---
CHEST 2 VIEWS ROUTINE HISTORY: 27 years-old Male J84.115 Respiratory bronchiolitis interstitial lung [id number] COMPARISON: Chest radiograph 03/18/2017, chest CT 01/17/2017 TECHNIQUE: PA and lateral views of the chest FINDINGS: Cardiac silhouette is within normal limits. No pneumothorax, pleural effusion or lobar airspace consolidation. Multifocal multilobar distribution of reticular nodular opacities are again seen without significant change from comparison. The bones appear grossly intact. Remote right clavicular fracture. IMPRESSION: 1. No acute process. 2. Stable appearance of the multifocal multilobar distribution of reticular nodular opacities. The above report was generated using voice recognition software. It may contain grammatical, syntax or spelling errors. Electronically signed by: Rocky Carroll M.D. 06/05/2017 10:35 AM Dictated Date/Time: 06/05/2017 10:32 AM
== END | disposition home or self-care (01) ==
LOC: C.RAD1850 10:24
PROVIDERS: ATTEND Internal Medicine Pulmonary Disease
DX: J84.115 Respiratory bronchiolitis interstitial lung disease (principal); R05 Cough; R91.8 Other nonspecific abnormal finding of lung field

== ENCOUNTER → 2017-06-13 | Outpatient (CLI) | payer OTHER ==
--- NOTE | 2017-06-13 14:37 | DIAGNOSTIC IMAGING REPORT ---
TWO VIEW CHEST CLINICAL HISTORY: Interstitial lung disease. FINDINGS: PA and lateral chest radiographs are compared to study dated 06/05/2017 and correlated with chest CT dated 01/17/2017. The cardiomediastinal silhouette is unremarkable. Diffuse interstitial thickening and micronodules there is similar to previous. There is no evidence of superimposed consolidation or pleural effusion. There is no pneumothorax. The bony thorax appears intact. IMPRESSION: Interstitial changes are similar to previous. There is no evidence of superimposed airspace consolidation or pleural effusion. Electronically signed by: Brenton Decker M.D. 06/13/2017 2:36 PM Dictated Date/Time: 06/13/2017 2:34 PM
== END | disposition home or self-care (01) ==
LOC: C.RAD1850 14:26
PROVIDERS: ATTEND Internal Medicine Pulmonary Disease
DX: J84.116 Cryptogenic organizing pneumonia (principal); R05 Cough; R04.2 Hemoptysis